=== PATIENT | female | born 1955 | race Caucasian/White ===

== ENCOUNTER 2024-05-28 15:13 | Emergency (ER) | payer MEDICARE, OTHER, SELFPAY ==
[2024-05-28 15:18] VITALS: BP 144/80
[2024-05-28] MEDS: DILAUDID 0.25 MG IV (16:52)
[2024-05-28] MEDS: ZOFRAN 4 MG IV (16:53)
--- NOTE | 2024-05-28 17:16 | ED.GENMED ---
History of Present Illness
General
Chief Complaint: Musculo-Skeletal Complaint
Source: patient
Exam Limitations: none
Time Seen by Provider: 05/28/24 17:15
Nursing documentation reviewed up to this point in time: agreed with
History of Present Illness
History of Present Illness:
This is a 68 year-old female with no past medical history who presents emergency department today with concerns of left wrist pain following a slip and fall. Patient reports that she was bringing her horse back into the barn when she slipped on the
ice and fell on her left wrist with outstretched hand. Patient did not hit her head when she fell. Patient denies any neck pain. Patient denies any loss of consciousness. Patient states that she previously lived in [place] and follows with
[facility] orthopedics there. Patient does not take a blood thinner. Patient denies any other injuries. Patient denies any difficulties with ambulation.
Review of Systems
Review of Systems
All Other Systems: ROS reviewed and negative except as documented in HPI and ROS
Phy Exam
Physical Exam
Physical Exam:
General: Patient is well appearing and in no acute distress; non-toxic
Skin: Warm and dry, no rashes or lesions. Brisk capillary refill
Head: Normocephalic, atraumatic
Eyes: Sclera non-icteric. EOMs intact. PERRLA.
Cardiac: Regular rate
Peripheral Vascular: 2+ radial, ulnar, brachial pulses on the left
Pulm: Normal respiratory effort
Musculoskeletal: Deformity noted to left wrist, tenderness to palpation
Neuro: CN II-XII intact, no focal neurologic deficits. Sensation intact.
Psychiatric: Appropriate mood and affect.
Course
Orders/Labs/Results
Orders:
Orders
05/28/24 15:22
CR Wrist - Left Min 3 Views Urgent
Comment:
Reason For Exam: fall/deformity
05/28/24 16:50
Ondansetron Injectable [Zofran] 4 mg .ROUTE .STK-MED ONE
05/28/24 16:51
HYDROmorphone [Dilaudid] 0.25 mg IV NOW STA
05/28/24 16:53
Ondansetron Injectable [Zofran] 4 mg IV NOW STA
05/28/24 18:30
CR Wrist - Left Min 3 Views Urgent
Comment:
Reason For Exam: post reduction
Vital Signs
Initial and Last Documented VS:
Initial Vital Signs
Temp Pulse BP Pulse Ox
97.5 F 62 144/80 99
05/28/24 15:18 05/28/24 15:18 05/28/24 15:18 05/28/24 15:18
Last Documented Vital Signs
Temp Pulse Resp BP Pulse Ox
97.5 F 61 18 138/77 99
05/28/24 15:18 05/28/24 20:22 05/28/24 20:22 05/28/24 20:22 05/28/24 20:22
Procedures
Splinting/Sling Placement
left wrist:
Procedure completed by: Angie calvin, Aranza Montes PA-C
Pre-splint extermity exam: neurovascular intact
Type of splint: sugar-tong
Splint material: fiberglass
Splint checked by provider?: Yes
Type of sling: sling fitted
Normal distal neurovascular exam?: Yes
Joint/Fracture Reduction
left wrist:
Indication for procedure:: Displaced fracture
Procedure completed by: Fredy Montaño MD, Aranza Montes PA-C
Consent form signed: No
If no, reason: Emergency procedure (verbal consent obtained)
Anesthesia/sedation: 1% Lidocaine w/ Epi
Injury was: closed
Post reduction exam: stable
Capillary Refill: normal
Normal distal neurovascular exam?: Yes
Peripheral Pulses: brachial (left): 2+ and radial (left): 2+
MDM/Problems Addressed
Differential Diagnosis Includes:
ddx include radial fracture, ulnar fracture, carpal fracture
MDM/Problems Addressed:
68-year-old female with no past medical history presents emergency department today with right wrist pain following fall on outstretched hand. She was found to have comminuted intra-articular fracture of distal radius with apex volar angulation and
dorsal displacement. With hematoma block, my attending and I attempted reduction. The fracture appeared to be reduced and felt better position. We subsequently splinted however unfortunately upon repeat x-ray, the fracture does not appear to be
significantly reduced. Reviewed case with Dr. Mosley, orthopedist from [facility] on-call who, given that patient is neurovascularly intact, is okay with patient being discharged as an outpatient. Dr. Mosley plans to operate on patient's wrist on
Thursday. Patient stable for discharge.
*Radiology
Radiology exam reviewed: radiology read reviewed
*Pulse Oximetry
Patient hypoxic: no
*Critical Care Note
Total Time (30-74mins, 75-104mins- exclusive of procedures): Not Applicable
Data Reviewed
Review of Other/Old Records Reveals: Records (Reviewed [facility] no previous ER physician documentation to review the discharge summaries to review)
Source: patient and records
Patient Management
Discussion with other providers: Regional Administrative Assistant (Dr. Mosley)
Escalation/DeEscalation of care consider admission/obs:
Case reviewed with my attending
ED Attending Note
-
Portions of this chart may have been created with voice recognition software.� Occasional wrong word or��sound alike� substitutions may have occurred due to the inherent limitations of voice recognition software.
Discharge Plan
Departure
Patient Disposition: Home (Routine Discharge)
Date of Disposition: 05/28/24
Time of Disposition: 19:56
Patient with high blood pressure during this ER visit?: Yes
Condition: Good
Discharge Problem:
Closed fracture of radius, distal end
Instructions: Splint Care ED, Wrist fracture, BLOOD PRESSURE
Referrals:
Christian Mosley MD [Active] - Call in 1-3 days for appt
UNKNOWN - PT DOES,NOT KNOW [Family Provider] -
Activity Restrictions/Additional Instructions:
Your x-ray demonstrated comminuted intra-articular fracture of the distal radius with displacement.
Please keep your splint dry.
Please do not take anything in by mouth Thursday at 12 AM. The office should call you around 8 AM however if you do not hear from them please call the attached number for Dr. Mosley's office.
PLEASE RETURN EMERGENCY DEPARTMENT SHOULD YOU DEVELOP LOSS OF SENSATION IN YOUR WRIST, INCREASING PAIN, NAUSEA OR VOMITING, FEVERS OR CHILLS, CHEST PAIN, SHORTNESS OF BREATH, OR ANY OTHER SIGNS OR SYMPTOMS WORRISOME DEEP
Interventions
Interventions:
*Risk Screen - Suicide Last Done: 05/28/24 15:18
*General Assessment Last Done: 05/28/24 15:18
*Neglect/Abuse Screening Last Done: 05/28/24 15:18
*Nursing Disposition Last Done: 05/28/24 20:23
ED-Musculoskeletal Assessment Last Done: 05/28/24 15:38
Discharge Date and Time
Print Language: AMERICAN
[2024-05-28 20:22] VITALS: BP 138/77
--- NOTE | 2024-05-29 08:38 | W.PN.UPDATE ---
Update Note
Progress Note Update
Message left with pt just now
Plan is to be NPO after midnite
I will arrange for surgery tomorrow
Contact me or return to ER if any problems or concerns whatsoever
GGMD
== END 2024-05-28 20:23 | disposition home or self-care (01) ==
LOC: EMR 15:13
PROVIDERS: EMERGENCY PHYSICIAN Emergency Medicine
DX: S52.572A Other intraarticular fracture of lower end of left radius, initial encounter for closed fracture (principal); W00.0XXA Fall on same level due to ice and snow, initial encounter; R03.0 Elevated blood-pressure reading, without diagnosis of hypertension
CPT/HCPCS: 25605; 99285; 96374; 96375; 73110